=== PATIENT | female | born 1990 | race Caucasian/White ===

== ENCOUNTER 2017-11-15 06:12 | Inpatient (IN) ==
[2017-11-15] MEDS ORDERED: ONDANSETRON 4 MG/2 ML VIAL IV STA (06:55)
[2017-11-15] MEDS ORDERED: MORPHINE 4 MG/1 ML VIAL IV STA ×2 (06:55→09:22)
[2017-11-15] MEDS ORDERED: ONDANSETRON 4 MG/2 ML VIAL IV PRN (10:10)
[2017-11-15] MEDS ORDERED: MORPHINE 4 MG/1 ML VIAL IV PRN (10:10)
[2017-11-15] MEDS ORDERED: ACETAMINOPHEN 325 MG TABLET PO PRN (10:10)
[2017-11-15] MEDS: DEXTROSE 5% LACTATED RINGERS 1,000 ML IV SCH ×3 (10:46→21:50)
[2017-11-15] MEDS: metroNIDAZOLE INJ 500 MG in PREMIX 1 EACH IV SCH ×2 (10:49→17:45)
[2017-11-15] MEDS ORDERED: LEVOFLOXACIN INJ 750 MG in PREMIX 1 EACH IV SCH (11:00)
[2017-11-15] MEDS ORDERED: BUPIVACAINE 0.25% /EPI 10 ML VIAL ONE (13:09)
[2017-11-15] MEDS ORDERED: LIDOCAINE 1%/EPI INJ 20 ML VIAL ONE (13:09)
[2017-11-15] MEDS ORDERED: TISSUE ADHESIVE 1 EACH APPLICATOR TOP ONE (13:09)
[2017-11-15] MEDS ORDERED: SCOPOLAMINE 1.5 MG PATCH TRANSDERM ONE ×2 (13:26→13:53)
[2017-11-15] MEDS ORDERED: fentaNYL 100 MCG/2 ML VIAL ONE (16:05)
[2017-11-15] MEDS ORDERED: PROPOFOL 200 MG/20 ML VIAL IV ONE (16:05)
[2017-11-15] MEDS ORDERED: MIDAZOLAM 2 MG/2 ML VIAL ONE (16:05)
[2017-11-15] MEDS ORDERED: ONDANSETRON 4 MG/2 ML VIAL ONE (16:05)
[2017-11-15] MEDS ORDERED: PROMETHAZINE 25 MG/1 ML VIAL ONE (16:05)
[2017-11-15] MEDS ORDERED: DESFLURANE 1 UNIT/15 MINUTE INH ONE (16:05)
[2017-11-15] MEDS ORDERED: DEXAMETHASONE 10 MG/1 ML VIAL ONE (16:05)
[2017-11-15] MEDS ORDERED: ACETAMINOPHEN 1,000 MG/100 ML VIAL IV ONE (16:06)
[2017-11-15] MEDS ORDERED: LACTATED RINGERS 1,000 ML IV ONE (16:06)
[2017-11-15] MEDS ORDERED: ROCURONIUM 100 MG/10 ML VIAL IV ONE (16:06)
[2017-11-15] MEDS ORDERED: SUCCINYLCHOLINE 200 MG/10 ML VIAL ONE (16:06)
[2017-11-16] MEDS: metroNIDAZOLE INJ 500 MG in PREMIX 1 EACH IV SCH (03:16)
[2017-11-16] MEDS ORDERED: ALBUTEROL 2.5 MG/3 ML NEB RESP TX PRN (06:36)
[2017-11-16] MEDS: DEXTROSE 5% LACTATED RINGERS 1,000 ML IV SCH (07:05)
[2017-11-16 07:51] VITALS: BP 106/50
[2017-11-16] MEDS ORDERED: PANTOPRAZOLE 40 MG TABLET PO SCH (09:00)
[2017-11-16] MEDS ORDERED: NORGESTIMATE ETHINYL ESTRADIOL PO SCH (21:00)
== END 2017-11-16 10:10 | disposition home or self-care (01) | DRG 419 ==
LOC: N.ED 06:12 → N.EDINP 10:10 → N.3E 12:32
PROVIDERS: ADMIT Surgery; ATTEND Surgery
PROC: LAPCHOL (2017-11-15 14:39)

== ENCOUNTER 2018-02-25 05:14 | Inpatient (IN) ==
[2018-02-25 05:59] LABS: Apearance,Urine Slightly Hazy (Clear); Basophils % 0.4 % (0.0-0.8); Bilirubin,Urine Negative (Negative); Blood, Urine Negative (Negative); Eosinophils # 0.2 10*3/uL (0.0-0.87); Eosinophils % 2.1 % (0.00-10.9); Glucose,Urine (UA) Negative (Negative); Hematocrit 43.5 VOL% (35.7-47.0); Hemoglobin 14.4 GM/DL (12.0-16.0); Immature Granulocytes % 0.3 %; Immature Granulocytes Absolute 0.02 #; Ketones,Urine Negative (Negative); Lymphocytes # 1.6 10*3/uL (1.4-4.0); Lymphocytes % 22.3 % (21.3-54.2); Mean Corpuscular HGB Conc 33.1 GM/DL (32-36); Mean Corpuscular Hemoglobin 27 PG (27-34); Mean Corpuscular Volume 81.3 FL (87-102); Mean Platelet Volume 9.7 FL (9.6-12.0); Monocytes # 0.5 10*3/uL (0.11-0.8); Monocytes % 6.3 % (1.7-12.7); Neutrophils # 4.9 10*3/uL (1.4-7.4); Neutrophils % 68.6 % (38.7-73.9); Nitrite,Urine Negative (Negative); Platelet Count 245 T/CUMM (130-400); Protein,Urine Negative; RBC,Urine 1 /HPF (0-4); Red Blood Count 5.35 MC/CUMM (3.8-5.5); Red Cell Distribution Width 14.1 % (9.3-17.3); Squamous Epithelial Cell,Urine Occasional /HPF (0-10); Urine Color Yellow (Yellow); Urine Specific Gravity 1.015 (1.001-1.035); Urine Urobilinogen < 2.0 EU/DL (0.2-1.0); WBC,Urine <1 /HPF (0-6); White Blood Count 7.2 T/CUMM (4-12)
[2018-02-25 06:14] LABS: Bilirubin,Total 0.4 MG/DL (0.2-1.0); Calcium 9.3 MG/DL (8.5-10.1); Osmolality,Calculated 274.5 MOS/KG (273-304); Potassium 3.9 MMOL/L (3.5-5.1)
[2018-02-25] MEDS ORDERED: PROMETHAZINE 25 MG/1 ML VIAL IM STA (06:15)
[2018-02-25] MEDS: ACETAMINOPHEN 325 MG TABLET PO PRN ×2 (09:27→18:09)
[2018-02-25] MEDS: PANTOPRAZOLE 40 MG TABLET PO SCH (09:27)
[2018-02-25] MEDS: LACTATED RINGERS 1,000 ML IV SCH ×2 (09:28→19:02)
[2018-02-25 13:50] LABS: Hepatitis A Ab IgM Quant 0.14 Index; Hepatitis A Ab IgM Result Negative (Negative); Hepatitis B Core IgM Quant 0.08 Index; Hepatitis B Core IgM Result Negative (Negative); Hepatitis B Surface Ag Quant < 0.10 Index; Hepatitis B Surface Ag Result Negative (Negative); Hepatitis C Virus Ab Quant < 0.02 Index; Hepatitis C Virus Ab Result Negative (Negative)
[2018-02-26] MEDS: ACETAMINOPHEN 325 MG TABLET PO PRN ×2 (01:08→23:10)
[2018-02-26] MEDS: ONDANSETRON 4 MG/2 ML VIAL IV PRN ×4 (01:09→23:10)
[2018-02-26] MEDS: LACTATED RINGERS 1,000 ML IV SCH ×4 (01:10→23:10)
[2018-02-26 05:36] LABS: Basophils % 0.2 % (0.0-0.8); Eosinophils # 0.2 10*3/uL (0.0-0.87); Eosinophils % 3.2 % (0.00-10.9); Hemoglobin 13.2 GM/DL (12.0-16.0); Immature Granulocytes % 0.2 %; Immature Granulocytes Absolute 0.01 #; Lymphocytes # 1.7 10*3/uL (1.4-4.0); Lymphocytes % 30.6 % (21.3-54.2); Mean Corpuscular Hemoglobin 27 PG (27-34); Mean Corpuscular Volume 81.8 FL (87-102); Mean Platelet Volume 9.8 FL (9.6-12.0); Monocytes # 0.4 10*3/uL (0.11-0.8); Monocytes % 7.7 % (1.7-12.7); Neutrophils # 3.2 10*3/uL (1.4-7.4); Neutrophils % 58.1 % (38.7-73.9); Platelet Count 245 T/CUMM (130-400); Red Blood Count 4.89 MC/CUMM (3.8-5.5); White Blood Count 5.6 T/CUMM (4-12)
[2018-02-26 05:50] LABS: Calcium 8.3 MG/DL (8.5-10.1); Potassium 3.9 MMOL/L (3.5-5.1)
[2018-02-26] MEDS ORDERED: SCOPOLAMINE 1.5 MG PATCH TRANSDERM ONE (10:27)
[2018-02-26] MEDS ORDERED: PROPOFOL 200 MG/20 ML VIAL IV ONE (11:00)
[2018-02-26] MEDS ORDERED: LIDOCAINE 2% 5 ML VIAL ONE (11:00)
[2018-02-26] MEDS: PANTOPRAZOLE 40 MG TABLET PO SCH (15:59)
[2018-02-27] MEDS: LACTATED RINGERS 1,000 ML IV SCH ×2 (02:07→23:34)
[2018-02-27] MEDS ORDERED: INFLUENZA VIRUS VACCINE 0.5 ML SYRINGE IM ONE (10:52)
[2018-02-27] MEDS: PANTOPRAZOLE 40 MG TABLET PO SCH (12:40)
[2018-02-27] MEDS ORDERED: AMITRIPTYLINE 25 MG TABLET PO SCH (21:00)
[2018-02-28] MEDS: LACTATED RINGERS 1,000 ML IV SCH ×2 (02:27→11:32)
[2018-02-28] MEDS: PANTOPRAZOLE 40 MG TABLET PO SCH (08:26)
[2018-02-28 11:45] VITALS: BP 98/62
== END 2018-02-28 13:17 | disposition home or self-care (01) | DRG 392 ==
LOC: N.ED 05:14 → N.EDINP 07:34 → N.3E 08:24
PROVIDERS: ADMIT Surgery; ATTEND Surgery